=== PATIENT | female | born 1960 | race Caucasian/White ===

== ENCOUNTER 2021-02-11 09:37 | Observation (INO) ==
[~2021-02-11 09:37] MED LIST: Buffered Lidocaine 1% SYRIN 1 ml INTRADERM ONE; Dexamethasone IV 4 MG/ML VIAL 1 ml VIAL IV SLOW PU ONE; Famotidine IV 10 MG/ML 2 ml VIAL (20 mg) IV SLOW PU ONE; Lactated Ringers 1000 ml BAG 1,000 ML IV SCH
[2021-02-11] MEDS ORDERED: Dexamethasone IV 4 MG/ML VIAL 1 ml VIAL ONE (09:55)
[2021-02-11] MEDS ORDERED: ceFAZolin 2 GM in NS PREMIX 2 GM/100 ML BAG IVPB ONE (09:56)
[2021-02-11] MEDS ORDERED: Famotidine IV 10 MG/ML 2 ml VIAL (20 mg) ONE (09:56)
[2021-02-11] MEDS ORDERED: Lidocaine 2% PF 5 ML VIAL ONE (10:14)
[2021-02-11] MEDS ORDERED: Propofol 10 MG/ML 20 ML BTL ONE (10:14)
[2021-02-11] MEDS ORDERED: Bupivacaine 0.5% W/EPI SDV 10 ML VIAL INJ ONE ×2 (10:42→11:20)
[2021-02-11] MEDS ORDERED: Vancomycin 1,000 MG VIAL ONE ×2 (10:43→11:50)
[2021-02-11] MEDS ORDERED: Midazolam 2 mg/2 ml VIAL 1 mg/ml 2 ml VIAL (2 mg) ONE ×2 (11:03→12:12)
[2021-02-11] MEDS ORDERED: fentaNYL 100 mcg/2 ml 50 MCG/ML VIAL ONE (11:03)
[2021-02-11] MEDS ORDERED: ROPIVACAINE 5 MG/ML 30 ML BTL (0.5%) ONE (11:05)
[2021-02-11] MEDS ORDERED: Ketamine HCL 50 mg/ml 10 ml VIAL (500 MG) ONE (12:29)
[2021-02-11] MEDS ORDERED: Acetaminophen IV 1 GM/100ML 100 ML IV ONE (12:49)
[2021-02-11] MEDS ORDERED: Lactulose 30 ml UDC PO PRN (14:37)
[2021-02-11] MEDS ORDERED: diPHENhydraMINE 25 mg TAB PO PRN (14:37)
[2021-02-11] MEDS ORDERED: diPHENhydraMINE IV 50 MG/ML 1 ml VIAL (BENADRYL) IV PRN (14:37)
[2021-02-11] MEDS ORDERED: Magnesium Hydroxide LIQ 30 ML UDC PO PRN (14:37)
[2021-02-11] MEDS ORDERED: Ondansetron 4 mg VIAL 2 MG/ML 2 ml VIAL IV PRN (14:37)
[2021-02-11] MEDS ORDERED: Ondansetron ODT 4 mg TAB 4 MG TAB PO PRN (14:37)
[2021-02-11] MEDS ORDERED: Morphine 2 MG/ML SYRINGE IV PRN (14:37)
[2021-02-11] MEDS: Lactated Ringers 1000 ml BAG 1,000 ML IV SCH (16:19)
[2021-02-11] MEDS: Magnesium Hydroxide LIQ 30 ML UDC PO SCH (20:18)
[2021-02-11] MEDS: ceFAZolin 1 GM ADVAN 1 GM in NS 0.9% 50 ML 50 ML IVPB SCH (22:44)
[2021-02-12] MEDS: Lactated Ringers 1000 ml BAG 1,000 ML IV SCH (02:57)
[2021-02-12 05:25] LABS: Hematocrit 35 % (35-47); Hemoglobin 11.5 g/dL (12.0-16.0); Mean Platelet Volume 8.4 fL (7.4-10.4); Platelet Count 216 10^3/uL (150-450)
[2021-02-12] MEDS: ceFAZolin 1 GM ADVAN 1 GM in NS 0.9% 50 ML 50 ML IVPB SCH ×2 (05:36→13:01)
[2021-02-12 05:39] LABS: Calcium 9.3 mg/dL (8.6-10.3); EGFR African American 106.4 (>60); Potassium 3.9 mmol/L (3.5-5.0)
[2021-02-12] MEDS: Magnesium Hydroxide LIQ 30 ML UDC PO SCH (08:58)
[2021-02-12] MEDS ORDERED: Multivitamins/Minerals TAB PO SCH (09:00)
[2021-02-12] MEDS ORDERED: Vitamin THERAPEUTIC TAB PO SCH (09:00)
[2021-02-12] MEDS ORDERED: Flu vaccine *QUAD* 2021-22* 0.5 ML SYRINGE IM ONE (09:00)
[2021-02-12 11:14] VITALS: BP 105/70
== END 2021-02-12 13:36 | disposition home or self-care (01) ==
LOC: OR 09:37 → SSU 09:37
PROVIDERS: ADMIT Orthopaedic Surgery; ATTEND Orthopaedic Surgery